=== PATIENT | female | born 1985 | race Caucasian/White ===

== ENCOUNTER 2016-09-01 07:57 | Emergency (ER) | payer OTHER ==
[2016-09-01 08:08] VITALS: TEMP 97.2
--- NOTE | 2016-09-01 08:52 | ED ---
General Adult HPI - General Chief complaint: Psychiatric Symptoms Stated complaint: Insomnia/Anxiety Time Seen by Provider: 09/01/16 08:11 Source: patient, RN notes reviewed Mode of arrival: ambulatory Limitations: no limitations - History of Present Illness Initial comments: Patient is a 31-year-old female presents emergency room for evaluation of insomnia. Patient states having increased panic attacks over the past 4 days. Patient states she is unable to sleep for the past 3 days. Patient does state she has a history of depression. Patient denies taking any medications for depression or following up with a counselor or psychiatrist. Patient denies any significant past medical history. Patient denies suicidal or homicidal ideations. Patient denies visual or auditory hallucinations. Patient denies shortness of breath, headache, dizziness, abdominal pain, nausea, vomiting. - Related Data Previous Rx's Medication Instructions Recorded LORazepam [Ativan] 1 mg PO HS PRN #5 tab 09/01/16 Allergies Allergy/AdvReac Type Severity Reaction Status Date / Time No Known Allergies Allergy Verified 09/01/16 08:36 Review of Systems ROS Statement: Those systems with pertinent positive or pertinent negative responses have been documented in the HPI. ROS Other: All systems not noted in ROS Statement are negative. Past Medical History Past Medical History: No Reported History Additional Past Medical History / Comment(s): depression History of Any Multi-Drug Resistant Organisms: None Reported Past Surgical History: No Surgical Hx Reported Past Psychological History: Depression Smoking Status: Current every day smoker Past Alcohol Use History: Daily Past Drug Use History: None Reported General Exam - General Exam Comments Initial Comments: Sitting in exam room, no acute distress. Limitations: no limitations General appearance: alert, in no apparent distress Head exam: Present: atraumatic, normocephalic, normal inspection Eye exam: Present: normal appearance ENT exam: Present: normal exam Neck exam: Present: normal inspection Respiratory exam: Present: normal lung sounds bilaterally. Absent: respiratory distress Cardiovascular Exam: Present: regular rate, normal rhythm, normal heart sounds Extremities exam: Present: normal inspection Back exam: Present: normal inspection Neurological exam: Present: alert, oriented X3, CN II-XII intact, normal gait Psychiatric exam: Present: normal affect, normal mood Skin exam: Present: warm, dry, intact, normal color. Absent: rash Course Vital Signs 09/01/16 09/01/16 08:05 10:05 Temperature 97.2 F L Pulse Rate 60 55 L Respiratory 18 14 Rate Blood Pressure 98/54 107/57 O2 Sat by Pulse 99 100 Oximetry EKG Findings - EKG Comments: EKG Findings:: Sinus bradycardia, ventricular rate 52 bpm, TN interval 110 ms, QRS duration 94 ms, QT/QTc 446/414 ms Medical Decision Making - Medical Decision Making Patient is 31-year-old female presents to the emergency room for evaluation of insomnia. Patient denies suicidal or homicidal ideations. Will send patient home with Ativan to help with panic attacks/insomnia and have her follow-up with outpatient psychiatry. Patient can also follow-up with her primary care provider. Advised patient to return for any suicidal or homicidal thoughts or visual/auditory hallucinations. Patient states she understands everything that was discussed with her. Case discussed with Dr. Torres. Disposition Clinical Impression: Insomnia Disposition: HOME SELF-CARE Condition: Good Instructions: Insomnia (ED) Additional Instructions: Please follow up with primary care provider in 24-48 hours. Can also follow-up with outpatient mental health list. Take Ativan at night as needed for insomnia. If any new symptom arises or symptoms worsen, return to ER as soon as possible. Prescriptions: LORazepam [Ativan] 1 mg PO HS PRN #5 tab PRN Reason: Insomnia Referrals: Josh Pablo MD [REFERRING] - 1-2 days Time of Disposition: 09:41
[2016-09-01 10:07] VITALS: BP 107/57; PULSE 55; RESP 14
== END 2016-09-01 10:07 | disposition home or self-care (01) ==
LOC: EC 07:57
DX: G47.00 Insomnia, unspecified (principal); R00.1 Bradycardia, unspecified; F32.9 Major depressive disorder, single episode, unspecified; F17.200 Nicotine dependence, unspecified, uncomplicated
CPT/HCPCS: 93005; 99283